=== PATIENT | female | born 1955 | race African-American/Black ===

== ENCOUNTER 2017-11-12 14:13 | Emergency (ER) | END 2017-11-12 18:13 | disposition home or self-care (01) ==

== ENCOUNTER 2018-03-25 21:28 | Observation (INO) | END 2018-03-27 13:05 | disposition home or self-care (01) ==

== ENCOUNTER 2018-11-06 03:10 | Emergency (ER) | payer OTHER ==
[~2018-11-06] VITALS: Ht 160 cm; Wt 79.5 kg
[~2018-11-06 03:10] MED LIST: GLIP5TAB13 PO; IBUP-1561 PO; QUET400T PO
[2018-11-06 03:13] VITALS: Ht 160 cm; Wt 79.5 kg
--- NOTE | 2018-11-06 04:40 | PSY ---
Date/Time of Note Date/Time of Note DATE: 11/06/18 TIME: 04:34 Psychiatric Subjective Eval Consent Pt consented to telemedicine: Yes Subjective Evaluation Patient location: emergency Chief Complaint: pt states took 10 seroquel pills Medical history Problems Medical Problems: (1) Back pain Status: Acute (2) Back pain Status: Acute (3) Fall from slip, trip, or stumble Status: Acute (4) Fall from slip, trip, or stumble Status: Acute (5) Head injury without concussion or intracranial hemorrhage Status: Acute (6) Head injury without concussion or intracranial hemorrhage Status: Acute Allergies: Coded Allergies: No Known Allergy (Unverified , 11/12/17) Psychiatric Objective Eval Mental Status Examination: Laboratory Results Laboratory Tests Test 11/06/18 03:30 11/06/18 04:08 Urine Color YELLOW Urine Clarity SLIGHTLY CLOUDY Urine pH 5.0 Urine Specific [place] 1.031 Urine Ketones TRACE mg/dL Urine Nitrite NEGATIVE mg/dL Urine Bilirubin NEGATIVE mg/dL Urine Urobilinogen 2+ mg/dL Urine Leukocyte Esterase NEGATIVE Tip/ul Urine Microscopic RBC 17 /HPF Urine Microscopic WBC 14 /HPF Urine Squamous Epithelial Cells FEW /HPF Urine Bacteria FEW /HPF Urine Mucus FEW /HPF Urine Hemoglobin NEGATIVE mg/dL Urine Glucose 3+ mg/dL Urine Total Protein NEGATIVE mg/dl Urine Opiates Screen NEGATIVE Urine Barbiturates NEGATIVE Urine Amphetamines Screen NEGATIVE Urine Benzodiazepines Screen NEGATIVE Urine Cocaine Screen POSITIVE Urine Cannabinoids NEGATIVE White Blood Count 7.4 10^3/ul Red Blood Count 4.60 10^6/ul Hemoglobin 12.5 g/dl Hematocrit 39.3 % Mean Corpuscular Volume 85.4 fl Mean Corpuscular Hemoglobin 27.2 pg Mean Corpuscular Hemoglobin Concent 31.8 g/dl Red Cell Distribution Width 13.7 % Platelet Count 240 10^3/UL Mean Platelet Volume 10.1 fl Immature Granulocytes % 0.300 % Neutrophils % 58.0 % Lymphocytes % 34.4 % Monocytes % 5.4 % Eosinophils % 1.5 % Basophils % 0.4 % Nucleated Red Blood Cells % 0.0 /100WBC Immature Granulocytes # 0.020 10^3/ul Neutrophils # 4.3 10^3/ul Lymphocytes # 2.5 10^3/ul Monocytes # 0.4 10^3/ul Eosinophils # 0.1 10^3/ul Basophils # 0.0 10^3/ul Nucleated Red Blood Cells # 0.0 10^3/ul Assessment and Plan Recommendation/Plan Discharge Disposition: Psychiatric inpatient Legal Status: Continue involuntary hold Assessment Additional comments: IDENTIFYING INFORMATION: 62 year old [facility] patient who is currently located at the hospital and for whom psychiatric consultation was requested. SOURCES OF INFORMATION: The patient who appears to be somewhat reliable and the medical records; the nursing staff. CHIEF COMPLAINT: "suicidal". HISTORY OF PRESENT ILLNESS: The patient was interviewed via telemedicine in the presence of and under the supervision of nursing staff of the hospital. The consent to conducting this interview via telemedicine was obtained by the nursing staff at the hospital. RN Wendy reports that the patient presented with SI in the context of cocaine use. Pt stated that she took 10 seroquel pills. Is on a 5150 hold; per ppw, the pt has SI, AH. The patient reports having AH, paranoid thoughts, SI and took 10 seroquel tablets, depressed mood. The patient denies using alcohol heavily or regularly. The patient reports using crack cocaine occasionally. The patient denies using any other substances. In terms of past psychiatric history, the patient reports having a history of past psychiatric hospitalizations. The patient reports having a history of past suicide attempts. PAST MEDICAL HISTORY: DM. CURRENT MEDICATIONS: seroquel, unknown medications. ALLERGIES TO MEDICATIONS: NKDA. LABORATORY TESTS: CBC unremarkable, CMP pending, UDS positive for cocaine, alcohol level pending. SOCIAL HISTORY: lives boyfriend, has kids, not on disability, single. REVIEW OF SYSTEMS: Constitutional (e.g., fever, weight loss): negative; Eyes, Ears, Nose, Mouth, Throat: negative; Cardiovascular: negative; Respiratory: negative; Gastrointestinal: negative; Genitourinary: negative; Musculoskeletal: negative; Integumentary (skin and/or breast): negative; Neurological: negative; Psychiatric: as per HPI; Endocrine: negative; Hematologic/Lymphatic: negative; Allergic/Immunologic: negative. MENTAL STATUS EXAMINATION: General Appearance and Behavior: Calm, cooperative with the interview, pleasant with the current interviewer, makes fair eye contact, fairly groomed, no abnormal movements noted, Speech: Regular rate, regular rhythm, normal latency, normal volume, somewhat decreased amount, Flow of thought: sequential, logical, goal-directed, Content of thought: + auditory hallucinations, no visual hallucinations, + delusions, positive for suicidal ideation; no homicidal ideation, Mood: "depressed", Affect: dysthymic, dysphoric, not reactive, Attention: normal based on the interview, Insight: fair, Judgment: poor, Memory: normal based on the interview, Sensorium: alert and oriented to person, place and date. ASSESSMENT: The patient's presentation and history are consistent with the diagnosis of unspecified psychotic disorder,cocaine use disorder. The patient presents with depressive and psychotic symptoms in the context of medication compliance, psychosocial stressors and substance use. PLAN: - Medication management: Would d/c Seroquel for now due to the overdose. Would start haloperidol 5 mg IM PRN severe agitation q4 hours. Would start diphenhydramine 50 mg IM PRN severe agitation q4 hours. Would start lorazepam 2 mg IM PRN severe agitation q4 hours Will defer to the inpatient psychiatry team for other medication changes. - Labs: Please check CMP, Alcohol level. -Psychotherapy: Provided supportive psychotherapy and psychoeducation. - Disposition: Would recommend involuntary admission to the inpatient psychiatric unit given the severity of the patient's psychiatric condition and the fact that the patient is an imminent danger to self and/or others so long as the patient has been cleared medically for admission to psychiatry. Inpatient psychiatric admission is at this time the least restrictive environment where the patient can receive the psychiatric care that is needed. Would place on suicide precautions. The patient fulfills criteria for being placed on an involuntary hold for being a danger to self due to a psychiatric disorder. RADHA AGUILERA MD Nov 06, 2018 04:40
--- NOTE | 2018-11-06 05:04 | ERD ---
ER Documentation Chief Complaint Chief Complaint pt states took 10 seroquel pills HPI This is a very pleasant 62-year-old female who comes in claiming she is suicidal. Said she took 10 Seroquel pills in case she felt like she wanted to "end it all". Denies homicidal ideation. Denies auditory or visual hallucinations. ROS All systems reviewed and are negative except as per history of present illness. Medications Home Meds Active Scripts Quetiapine Fumarate* (Seroquel*) 400 Mg Tablet, 400 MG PO BID for 7 Days, #14 TAB Prov:CORBIN ORTIZ MD 03/27/18 Glipizide* (Glipizide*) 5 Mg Tablet, 5 MG PO AC BREAKFAST DINNER for 30 Days, #30 TAB Prov:CORBIN ORTIZ MD 03/27/18 Ibuprofen* (Motrin*) 400 Mg Tab, 400 MG PO Q8 PRN for PAIN AND OR ELEVATED TEMP for 3 Days, #12 TAB Prov:LIS OLIVO MD 11/12/17 Allergies Allergies: Coded Allergies: No Known Allergy (Unverified , 11/12/17) PMhx/Soc History of Surgery: No Anesthesia Reaction: No Hx Neurological Disorder: No Hx Respiratory Disorders: No Hx Cardiac Disorders: Yes (HTN) Hx Psychiatric Problems: Yes (DEPRESSION, SA, SI, BIPOLAR, SCHIZOPHRENIA) Hx Miscellaneous Medical Probl: Yes (DM, H.OF ILLICIT DRUG USE) Hx Alcohol Use: No Hx Substance Use: No Hx Tobacco Use: Yes Smoking Status: Current every day smoker Physical Exam Vitals Vital Signs Date Temp Pulse Resp B/P (MAP) Pulse Ox O2 O2 Flow FiO2 Time Delivery Rate 11/06/18 98.2 88 16 142/82 100 03:13 (102) Physical Exam Const: No acute distress Head: Atraumatic Eyes: Normal Conjunctiva ENT: Normal External Ears, Nose and Mouth. Neck: Full range of motion. No meningismus. Resp: Clear to auscultation bilaterally Cardio: Regular rate and rhythm, no murmurs Abd: Soft, non tender, non distended. Normal bowel sounds Skin: No petechiae or rashes Back: No midline or flank tenderness Ext: No cyanosis, or edema Neur: Awake and alert Psych: Normal Mood and Affect Result Diagram: 11/06/1840711/06/18407 Results 24 hrs Laboratory Tests Test 11/06/18 03:30 11/06/18 04:08 Urine Color YELLOW Urine Clarity SLIGHTLY CLOUDY Urine pH 5.0 Urine Specific [place] 1.031 Urine Ketones TRACE mg/dL Urine Nitrite NEGATIVE mg/dL Urine Bilirubin NEGATIVE mg/dL Urine Urobilinogen 2+ mg/dL Urine Leukocyte Esterase NEGATIVE Tip/ul Urine Microscopic RBC 17 /HPF Urine Microscopic WBC 14 /HPF Urine Squamous Epithelial Cells FEW /HPF Urine Bacteria FEW /HPF Urine Mucus FEW /HPF Urine Hemoglobin NEGATIVE mg/dL Urine Glucose 3+ mg/dL Urine Total Protein NEGATIVE mg/dl Urine Opiates Screen NEGATIVE Urine Barbiturates NEGATIVE Urine Amphetamines Screen NEGATIVE Urine Benzodiazepines Screen NEGATIVE Urine Cocaine Screen POSITIVE Urine Cannabinoids NEGATIVE White Blood Count 7.4 10^3/ul Red Blood Count 4.60 10^6/ul Hemoglobin 12.5 g/dl Hematocrit 39.3 % Mean Corpuscular Volume 85.4 fl Mean Corpuscular Hemoglobin 27.2 pg Mean Corpuscular Hemoglobin Concent 31.8 g/dl Red Cell Distribution Width 13.7 % Platelet Count 240 10^3/UL Mean Platelet Volume 10.1 fl Immature Granulocytes % 0.300 % Neutrophils % 58.0 % Lymphocytes % 34.4 % Monocytes % 5.4 % Eosinophils % 1.5 % Basophils % 0.4 % Nucleated Red Blood Cells % 0.0 /100WBC Immature Granulocytes # 0.020 10^3/ul Neutrophils # 4.3 10^3/ul Lymphocytes # 2.5 10^3/ul Monocytes # 0.4 10^3/ul Eosinophils # 0.1 10^3/ul Basophils # 0.0 10^3/ul Nucleated Red Blood Cells # 0.0 10^3/ul Sodium Level 140 mmol/L Potassium Level 3.8 mmol/L Chloride Level 106 mmol/L Carbon Dioxide Level 26 mmol/L Anion Gap 8 Blood Urea Nitrogen 12 mg/dl Creatinine 0.89 mg/dl Est Glomerular Filtrat Rate mL/min > 60 mL/min Glucose Level 231 mg/dl Calcium Level 9.1 mg/dl Total Bilirubin 0.2 mg/dl Direct Bilirubin 0.00 mg/dl Indirect Bilirubin 0.2 mg/dl Aspartate Amino Transf (AST/SGOT) 22 IU/L Alanine Aminotransferase (ALT/SGPT) 18 IU/L Alkaline Phosphatase 158 IU/L Total Protein 6.8 g/dl Albumin 3.9 g/dl Globulin 2.90 g/dl Albumin/Globulin Ratio 1.34 Salicylates Level < 1.0 mg/dl Acetaminophen Level < 10.0 ug/ml Ethyl Alcohol Level < 10.0 mg/dl Procedures/MDM Patient's behavioral symptoms have stabilized while in the department. Patient is medically cleared and appropriate for psychiatric evaluation and work up. No e/o neurologic, toxic, infectious, or metabolic cause. Patient was recommended for 5150 hold by telemetry psychiatry. I am unconcerned about the Seroquel as upon further questioning I asked the patient and she admitted that s he did not actually take the 10 pills of Seroquel, but stated that that would be her plan to commit suicide. Patient is currently awaiting placement with behavioral health unit Departure Diagnosis: Primary Impression: Psychological disorder Condition: Serious DAY GUEVARA Nov 06, 2018 05:04
[2018-11-06] MEDS ORDERED: CITA20TA8 PO (05:23)
[2018-11-06] MEDS ORDERED: INSULIN LISPRO 100 UNIT/ML VIAL SC ONE ×2 (12:30→21:30)
[2018-11-06 23:30] VITALS: BP 99/80; PULSE 81; RESP 20
== END 2018-11-06 23:46 ==
LOC: E/R 03:10
DX: F99 Mental disorder, not otherwise specified (principal); E11.9 Type 2 diabetes mellitus without complications; I10 Essential (primary) hypertension; F17.210 Nicotine dependence, cigarettes, uncomplicated; Z79.4 Long term (current) use of insulin
CPT/HCPCS: 80053; 80307; 81001; 81003; 82962; 85025; J1815; 36415; 96372